=== PATIENT | male | born 1970 | race Caucasian/White ===

== ENCOUNTER 2025-04-04 21:12 | Emergency (ER) | payer MEDICARE ==
[2025-04-04] MEDS ORDERED: diphenhydrAMINE 50 MG/ML VIAL ONE (21:37)
[2025-04-04 22:11] LABS: #Basophils 0.05 10x3/uL (0.0-0.2); #Eosinophils Less than 0.03 10x3/uL (0.0-0.5); #Monocytes 0.48 10x3/uL (0.0-1.1); #Neutrophils 9.78 10x3/uL (1.5-8.4); %Basophils 0.4 % (0.0-2.0); %Eosinophils 0.1 % (0.0-6.0); %Lymphocytes 9.0 % (18.0-47.0); %Monocytes 4.2 % (0.0-10.0); %Neutrophils 85.9 % (40.0-75.0); Hematocrit 48.6 % (38.8-50.0); Hemoglobin 16.5 g/dL (13.5-17.5); Mean Corpuscular Hemoglobin 29.7 pg (27.0-33.0); Mean Corpuscular Volume 87.4 fL (81.2-95.1); Platelet Count 238 10x3/uL (150-450); Red Blood Cell (RBC) Count 5.56 10x6/uL (4.32-5.72); White Blood Cell (WBC) Count 11.40 10x3/uL (3.5-10.5)
[2025-04-04 22:24] LABS: ALT (SGPT) 39 U/L (Less than 45); AST (SGOT) 38 U/L (11-34); Albumin 4.4 g/dL (3.1-4.5); Alkaline Phosphatase 71 U/L (40-110); Anion Gap 15 mmol/L (10-20); BUN (Urea Nitrogen) 12 mg/dL (8.4-25.7); Bilirubin, Total 0.6 mg/dL (0.3-1.2); Calc. Creatinine Clearance 0 mL/min (70-130); Calcium 10.1 mg/dL (7.8-10.44); Carbon Dioxide 21 mmol/L (22-29); Chloride 107 mmol/L (98-107); Globulin 4.6 g/dL (2.4-3.5); Glucose 162 mg/dL (70-105); Lipase 17 U/L (8-78); Potassium 4.1 mmol/L (3.5-5.1); Sodium 139 mmol/L (136-145)
== END 2025-04-04 23:24 | disposition home or self-care (01) ==
LOC: CSHERS 21:12
DX: R10.9 Unspecified abdominal pain (principal); R11.10 Vomiting, unspecified; Z86.73 Personal history of transient ischemic attack (TIA), and cerebral infarction without residual deficits; I10 Essential (primary) hypertension
CPT/HCPCS: 76705; 83690; J1200; J1630

== ENCOUNTER 2025-04-20 07:47 | Outpatient (CLI) | payer MEDICARE ==
[2025-04-20 09:07] LABS: Hematocrit 50.6 % (38.8-50.0); Hemoglobin 15.1 g/dL (13.5-17.5); Mean Corpuscular Hemoglobin 28.9 pg (27.0-33.0); Mean Corpuscular Volume 96.7 fL (81.2-95.1); Platelet Count 401 10x3/uL (150-450); Red Blood Cell (RBC) Count 5.23 10x6/uL (4.32-5.72); White Blood Cell (WBC) Count 7.45 10x3/uL (3.5-10.5)
[2025-04-20 09:48] LABS: Platelet Adequacy Comment Appears Adequate; Target Cells SLIGHT = 2-5 cells (100X) (0-1/hpf)
[2025-04-20 09:49] LABS: MDiff Complete? YES
== END 2025-04-20 07:48 | disposition home or self-care (01) ==
LOC: CSHLAB 07:47
PROVIDERS: ATTEND Surgery
DX: Z01.818 Encounter for other preprocedural examination (principal); K85.10 Biliary acute pancreatitis without necrosis or infection
CPT/HCPCS: 85025; 93005; 93010